=== PATIENT | male | born 1985 | race Caucasian/White ===

== ENCOUNTER 2020-04-23 15:08 | Emergency (ER) | payer OTHER ==
[~2020-04-23] VITALS: Ht 172.7 cm; Wt 81.6 kg
== END 2020-04-23 22:25 | disposition home or self-care (01) ==
LOC: ER 15:08
DX: K52.89 Other specified noninfective gastroenteritis and colitis (principal)

== ENCOUNTER 2020-04-25 11:13 | Inpatient (IN) | payer OTHER ==
[~2020-04-25] VITALS: Ht 172.7 cm; Wt 79.4 kg
[2020-04-25] MEDS ORDERED: INTESTINEX680 M1 PO (11:27)
[2020-05-03] MEDS ORDERED: PROTONIX40 MG PO (13:48)
[2020-05-03] MEDS ORDERED: INTEGRA PLUS C1 EACH PO (13:51)
== END 2020-05-03 14:11 | disposition home or self-care (01) | DRG 392 ==
LOC: ER 11:13 → MEDJ 21:28
PROVIDERS: ADMIT Internal Medicine; ATTEND Internal Medicine
PROC: 0DJ08ZZ Inspection of Upper Intestinal Tract, Via Natural or Artificial Opening Endoscopic (ICD-10-PCS; principal; 2020-04-28)
PROC: 4A12X4Z Monitoring of Cardiac Electrical Activity, External Approach (ICD-10-PCS; 2020-04-28)
DX: K52.9 Noninfective gastroenteritis and colitis, unspecified (principal); K92.0 Hematemesis; K92.1 Melena; K25.9 Gastric ulcer, unspecified as acute or chronic, without hemorrhage or perforation; E86.0 Dehydration; Z20.822 Contact with and (suspected) exposure to COVID-19